=== PATIENT | female | born 1995 | race American Indian/Alaskan Native ===

== ENCOUNTER 2017-04-26 16:53 | Emergency (ER) | payer SELFPAY ==
[2017-04-26 18:11] LABS: Basophils % (Auto) 0.5 % (0.0-1.8); Eosinophils % (Auto) 0.3 % (0.0-4.3); Hematocrit 37.9 % (30.3-42.9); Hemoglobin 12.9 gm/dl (10.1-14.3); Mean Corpuscular HGB Conc 34 % (30-34); Mean Corpuscular Hemoglobin 32 pg (28-32); Mean Corpuscular Volume 95 fl (79-97); Platelet Count 225 K/mm3 (140-440); Red Blood Count 3.98 M/mm3 (3.65-5.03); Red Cell Distribution Width 13.1 % (13.2-15.2); White Blood Count 5.7 K/mm3 (4.5-11.0)
[2017-04-26 18:30] LABS: Anion Gap 22 mmol/L; BUN/Creatinine Ratio 11.66; Blood Urea Nitrogen 7 mg/dL (7-17); Calcium 9.5 mg/dL (8.4-10.2); Carbon Dioxide 22 mmol/L (22-30); Chloride 100.3 mmol/L (98-107); Glucose 82 mg/dL (65-100); Potassium 3.8 mmol/L (3.6-5.0); Sodium 140 mmol/L (137-145)
[2017-04-26 18:50] LABS: Urine Drugs of Abuse Note Disclamer
[2017-04-26 19:22] LABS: Bacteria,Urine 1+ /HPF (Negative); Bilirubin,Urine NEG (Negative); Blood,Urine NEG (Negative); Ketones,Urine TR mg/dL (Negative); Leukocyte Esterase,Urine NEG (Negative); Mucus,Urine 1+ /HPF; Nitrite,Urine NEG (Negative); Protein,Urine <15 mg/dL mg/dL (Negative); Urobilinogen,Urine < 2.0 mg/dL (<2.0)
[2017-04-26 21:46] VITALS: BP 159/129
--- NOTE | 2017-04-26 22:14 | Cat Scan Report ---
FINAL REPORT PROCEDURE: CT HEAD/BRAIN WO CON TECHNIQUE: Computerized tomography of the head was performed without contrast material. HISTORY: Altered Mental Status COMPARISON: No prior studies are available for comparison. FINDINGS: Brain: Brain density appears normal. No evidence of intracranial hemorrhage. No parenchymal hemorrhage, mass lesions or mass effect are seen. No abnormal extraxial fluid collects or masses are seen. Ventricles: Ventricles are normal size and are midline. Bone Windows: No evidence of skull fracture. Paranasal sinuses: Visualized portions appear clear. Mastoid air cells: Clear IMPRESSION: Negative examination
--- NOTE | 2017-04-26 22:44 | Emergency Department Report ---
ED Headache HPI - General Chief Complaint: Altered Mental Status Stated Complaint: PASS OUT Time Seen by Provider: 04/26/17 21:00 Source: patient - History of Present Illness Timing/Duration: 4-6 hours Quality: mild Head Injury Location: frontal Recent Head Trauma: frequent headaches Modifying Factors: improves with: exposure to light Associated Symptoms: confusion, fatigue Allergies/Adverse Reactions: Allergies connie flavor Allergy (Verified 04/26/17 17:32) Swelling Home Medications: Ambulatory Orders Azithromycin [Zithromax Z-AMBAR] 250 mg PO DAILY #6 tablet 06/30/14 Ibuprofen [Motrin 800 MG tab] 800 mg PO Q8H PRN #30 tablet 06/30/14 ED Review of Systems ROS: Stated complaint: PASS OUT Other details as noted in HPI Comment: All other systems reviewed and negative ED Past Medical Hx - Past Medical History Previous Medical History?: No - Surgical History Past Surgical History?: No Additional Surgical History: left hand surgery - Social History Smoking Status: Never Smoker Substance Use Type: None - Medications Home Medications: Home Medications Medication Instructions Recorded Confirmed Last Taken Type Azithromycin [Zithromax Z-AMBAR] 250 mg PO DAILY #6 tablet 06/30/14 Unknown Rx Ibuprofen [Motrin 800 MG tab] 800 mg PO Q8H PRN #30 tablet 06/30/14 Unknown Rx ED Physical Exam - General Limitations: No Limitations General appearance: alert, in no apparent distress - Head Head exam: Present: atraumatic, normocephalic - Eye Eye exam: Present: normal appearance - ENT ENT exam: Present: mucous membranes moist - Neck Neck exam: Present: normal inspection - Respiratory Respiratory exam: Present: normal lung sounds bilaterally. Absent: respiratory distress - Cardiovascular Cardiovascular Exam: Present: regular rate, normal rhythm. Absent: systolic murmur, diastolic murmur, rubs, gallop - GI/Abdominal GI/Abdominal exam: Present: soft, normal bowel sounds - Extremities Exam Extremities exam: Present: normal inspection - Back Exam Back exam: Present: normal inspection - Neurological Exam Neurological exam: Present: alert, oriented X3 - Psychiatric Psychiatric exam: Present: normal affect, normal mood - Skin Skin exam: Present: warm, dry, intact, normal color. Absent: rash ED Course Vital Signs 04/26/17 04/26/17 04/26/17 17:32 20:58 21:00 Temperature 98.8 F Pulse Rate 140 H 84 Respiratory 15 Rate Blood Pressure 124/82 108/75 O2 Sat by Pulse 100 97 Oximetry 04/26/17 04/26/17 21:15 21:31 Temperature Pulse Rate 83 84 Respiratory 12 12 Rate Blood Pressure 111/70 159/129 O2 Sat by Pulse 100 93 Oximetry ED Medical Decision Making - Lab Data Result diagrams: 04/26/17 17:55 04/26/17 17:55 - EKG Data When compared to previous EKG there are: no significant change Interpretation: normal EKG - Radiology Data Radiology results: report reviewed, image reviewed - Medical Decision Making patient doing well, back to baseline, will dc and follow up Critical care attestation.: If time is entered above; I have spent that time in minutes in the direct care of this critically ill patient, excluding procedure time. ED Disposition Clinical Impression: Weakness Disposition: DC-01 TO HOME OR SELFCARE Is pt being admited?: No Does the pt Need Aspirin: No Condition: Good Instructions: Weakness (ED) Referrals: PRIMARY CAREMD [Primary Care Provider] - 3-5 Days Time of Disposition: 22:44
== END 2017-04-26 23:09 | disposition home or self-care (01) ==
LOC: ED 16:53
DX: R53.1 Weakness (principal); R51 Headache
CPT/HCPCS: 36415; 70450; 80048; 80307; 81001; 82140; 82962; 84703; 85025; 99284; G0480; 80320